=== PATIENT | female | born 2000 | race Caucasian/White ===

== ENCOUNTER 2023-04-22 12:35 | Inpatient (IN) ==
[2023-04-22 13:26] LABS: Appearance Urine Cloudy (Clear); Bacteria Urine Automated Negative (Negative); Basophils # (auto) 0.11 K/uL (0-0.2); Basophils % (auto) 0.5 %; Bilirubin Urine Negative (Negative); Blood Urine Negative (Negative); Color Urine Orange; Eosinophils # (auto) 0.11 K/uL (0-0.50); Eosinophils % (auto) 0.5 %; Epithelial Cell Urine Auto >30 /lpf (0-5); Glucose Urine UA Negative (Negative); Hematocrit (blood only) 41.9 % (37.0-47.0); Hemoglobin 13.6 g/dl (12.0-16.0); Immature Granulocytes # (auto) 0.13 K/uL (0.01-0.20); Immature Granulocytes % (auto) 0.6 %; Ketones Urine Trace (Negative); Leukocyte Esterase Urine Trace (Negative); Lymphocytes # (auto) 4.13 K/uL (1.2-3.4); Lymphocytes % (auto) 19.3 %; Mean Corpuscular Hemoglobin 29.3 pg (25.0-34.0); Mean Corpuscular Hgb Conc 32.5 g/dL (32.0-36.0); Mean Corpuscular Volume 90.3 fL (80.0-100.0); Mean Platelet Volume 10.1 fL (9.4-12.4); Monocytes # (auto) 2.62 K/uL (0.11-0.59); Monocytes % (auto) 12.2 %; Neutrophils # (auto) 14.34 K/uL (1.40-6.50); Neutrophils % (auto) 66.9 %; Nitrite Urine Positive (Negative); Platelet Count 575 K/uL (130-400); Protein Urine Trace (Negative); RBC Urine Automated 0-4 /hpf (0-4); RDW Coefficient of Variation 12.5 % (11.5-14.5); RDW Standard Deviation 41.2 fL (36.4-46.3); Red Blood Count 4.64 M/uL (4.20-5.40); Specific Gravity Urine 1.028 (1.000-1.030); Urobilinogen Urine Negative (Negative); White Blood Count 21.44 K/ul (4.8-10.8); pH Urine 5.5 (4.5-7.5)
[2023-04-22 13:30] LABS: Pregnancy Test, Serum Negative (Negative)
[2023-04-22 13:34] LABS: Albumin Level 3.9 gm/dl (3.4-5.0); Bilirubin,Total 0.6 mg/dl (0.2-1.0); Calcium 9.4 mg/dl (8.6-10.3); Est GFR (African American) 117.8 ml/min; Est GFR (Non-African American) 101.7 ml/min; Globulin 3.8 gm/dl (2.5-4.0); Potassium 4.2 mmol/L (3.5-5.1); Total Protein 7.7 gm/dl (6.0-8.3)
--- NOTE | 2023-04-22 16:00 | Emergency Department Note ---
History of Present Illness General Chief Complaint: Abdominal Pain Stated Complaint: ABDOMINAL PAIN Time Seen by Provider: 04/22/23 15:41 History of Present Illness Provider Complaint: abdominal pain Onset (ago): 1 week(s) Pain Consistency: intermittent Location: LLQ and RLQ Severity: moderate Maximum Pain Intensity: 7 Current Pain Intensity: 7 Quality: + cramping Relieved By: + nothing Exacerbated By: + nothing Context: no foreign travel, no possible food poisoning, no sick contacts, no recent antibiotic use, no recent surgery/procedure, no recent injury or no history of similar episodes Associated Symptoms: + nausea and + fever; no vomiting, no diarrhea, no chills, no constipation, no dysuria and no hematuria Patient states there is no chance she is . She states she is not concerned about any STDs. No abnormal vaginal discharge or bleeding. Home Medications Medication Instructions Recorded Confirmed Type azathioprine 50 mg tablet 50 mg PO DAILY 04/22/23 04/22/23 History infliximab 100 mg intravenous 0 mg IV .EVERY 6 WEEKS 04/22/23 04/22/23 History solution (Remicade) Allergies Allergy/AdvReac Type Severity Reaction Status Date / Time No Known Allergies Allergy Unverified 04/22/23 15:52 Past Med/Surg History Medical History Crohn's disease No pertinent family history Surgical History No pertinent past surgical history Social History Smoking Status: Never smoker Feels Safe at Home: Yes Physical Exam Vital Signs: Vital Signs - 24 hr 04/22/23 12:39 04/22/23 15:43 04/22/23 16:34 Temperature 36.9 C 38.1 C H Temperature Source Temporal Artery Sc an Oral Pulse Rate 92 H Pulse Rate [Apical ] 108 H 95 H Respiratory Rate 16 18 18 Respiratory Effort / Characteristics Respiratory Depth Blood Pressure 116/82 Blood Pressure [Ri ght Arm] 113/83 107/76 Blood Pressure Maame n 93 Blood Pressure Maame n [Right Arm] 93 86 Pulse Oximetry 98 99 98 Oxygen Delivery Me thod Room Air Room Air Room Air Sepsis Recent Feve r Within 48 Hours No Sepsis New/Unexpla ined Change in Men roderick Status No Sepsis Action Take n by Nursing No Action Required 04/22/23 17:09 Temperature Temperature Source Pulse Rate Pulse Rate [Apical ] 99 H Respiratory Rate 18 Respiratory Effort / Characteristics Non-Labored Respiratory Depth Normal Blood Pressure Blood Pressure [Ri ght Arm] Blood Pressure Maame n Blood Pressure Maame n [Right Arm] Pulse Oximetry 96 Oxygen Delivery Me thod Room Air Sepsis Recent Feve r Within 48 Hours Sepsis New/Unexpla ined Change in Men roderick Status Sepsis Action Take n by Nursing Physical Exam: Physical Exam HENT: Exam performed. -Head: Normocephalic and atraumatic. -Right Ear: External ear normal. No mastoid erythema -Left Ear: External ear normal. No mastoid erythema -Mouth/Throat: The oropharynx is clear and moist. No trismus in the jaw. No dental abscesses or uvula swelling. No oropharyngeal exudate or tonsillar abscesses. EYES: Conjunctivae and EOM are normal.Right eye exhibits no discharge. Left eye exhibits no discharge. No scleral icterus. NECK: Normal range of motion. Neck supple. No JVD present. No tracheal deviation and normal range of motion present. CV: Normal rate, regular rhythm, normal heart sounds and intact distal pulses. There is no peripheral edema. Palpable radial pulses bue. PULM/CHEST: Effort normal and breath sounds normal. No respiratory distress. No stridor. She has no wheezes. She has no rales. -Chest Wall: She exhibits no tenderness. ABD: The abdomen is soft. Bowel sounds are normal. She has no distension. No mass is present. There is tenderness to palpation in the right lower quadrant and left lower quadrant. There is no rebound, no guarding. MUSC/SKEL: Normal range of motion. There is no peripheral edema, tenderness or deformity. NEURO: Motor and sensation grossly intact. SKIN: Skin is warm and dry. She is not diaphoretic. PSYCH: She has a normal mood and affect. Behavior is normal. Judgment and thought content normal. Course Course 1541: The patient was evaluated in room C9. A complete history and physical exam was performed Administered Medications Lactated Ringer's (Lr) 1,000 mls @ 125 mls/hr IV .Q8H DORA Stop: 05/22/23 20:39 Last Admin: 04/22/23 21:00 Dose: 125 mls/hr Documented By: DREW Discontinued Medications Acetaminophen (Ofirmev) 1,000 mg in 100 mls @ 400 mls/hr IV NOW STA Stop: 04/22/23 17:04 Last Infusion: 04/22/23 17:24 Dose: 0 mls/hr Documented By: Admin: 04/22/23 17:07 Dose: 400 mls/hr Documented By: LEDA Lactated Ringer's (Lr) 1,000 mls @ 999 mls/hr IV .Q1H1M ONE Stop: 04/22/23 18:17 Last Admin: 04/22/23 17:44 Dose: 999 mls/hr Documented By: LEDA Ioversol (Optiray 320 100ml) 94 ml IV ONCE ONE Stop: 04/22/23 16:16 Last Admin: 04/22/23 16:07 Dose: 94 ml Documented By: MERON Prednisone (Prednisone 10 Mg Tablet) 25 mg PO NOW STA Stop: 04/22/23 20:41 Last Admin: 04/22/23 21:00 Dose: 25 mg Documented By: DREW Medical Decision Making Laboratory Data Attestation: I reviewed the patient's lab results. 04/22/23 12:57 04/22/23 12:57 Lab Results 04/22/23 04/22/23 04/22/23 Range/Units 12:57 12:57 12:57 WBC 21.44 H (4.8-10.8) K/ul RBC 4.64 (4.20-5.40) M/uL Hgb 13.6 (12.0-16.0) g/dl Hct 41.9 (37.0-47.0) % MCV 90.3 (80.0-100.0) fL MCH 29.3 (25.0-34.0) pg MCHC 32.5 (32.0-36.0) g/dL RDW Std Deviation 41.2 (36.4-46.3) fL RDW Coeff of Jerrell 12.5 (11.5-14.5) % Plt Count 575 H (130-400) K/uL MPV 10.1 (9.4-12.4) fL Immature Gran % (Auto) 0.6 % Neut % (Auto) 66.9 % Lymph % (Auto) 19.3 % Sevier % (Auto) 12.2 % Eos % (Auto) 0.5 % Baso % (Auto) 0.5 % Neut # (Auto) 14.34 H (1.40-6.50) K/uL Lymph # (Auto) 4.13 H (1.2-3.4) K/uL Sevier # (Auto) 2.62 H (0.11-0.59) K/uL Eos # (Auto) 0.11 (0-0.50) K/uL Baso # (Auto) 0.11 (0-0.2) K/uL Immature Gran # (Auto) 0.13 (0.01-0.20) K/uL ESR (0-20) mm/hr Sodium 136 (136-145) mmol/L Potassium 4.2 (3.5-5.1) mmol/L Chloride 99 (98-107) mmol/L Carbon Dioxide 30 (21-32) mmol/L Anion Gap 7 (3-11) BUN 13 (6-23) mg/dl Creatinine 0.81 (0.6-1.2) mg/dl Est Cr Clr Drug Dosing 108.0 ml/min Est GFR ( Amer) 117.8 ml/min Est GFR (Non-Af Amer) 101.7 ml/min BUN/Creatinine Ratio 16.0 (10-20) Glucose 101 H (70-99(Fasting)) mg/dl Lactate (0.4-2.0) mmol/L Calcium 9.4 (8.6-10.3) mg/dl Total Bilirubin 0.6 (0.2-1.0) mg/dl AST 20 (13-39) U/L ALT 15 (7-52) U/L Alkaline Phosphatase 79 (34-104) U/L C-Reactive Protein 9.10 H (0-0.5) mg/dl Total Protein 7.7 (6.0-8.3) gm/dl Albumin 3.9 (3.4-5.0) gm/dl Globulin 3.8 (2.5-4.0) gm/dl Albumin/Globulin Ratio 1.0 (0.9-2) Lipase 8 L (11-82) U/L Carcinoembryonic Ag (0-2.5) ng/ml Procalcitonin (0-0.5) ng/ml HCG, Qual Negative (Negative) Urine Color Urine Appearance (Clear) Urine pH (4.5-7.5) Ur Specific [place] (1.000-1.030) Urine Protein (Negative) Urine Glucose (UA) (Negative) Urine Ketones (Negative) Urine Blood (Negative) Urine Nitrite (Negative) Urine Bilirubin (Negative) Urine Urobilinogen (Negative) Ur Leukocyte Esterase (Negative) Urine WBC (Auto) (0-5) /hpf Urine RBC (Auto) (0-4) /hpf U Hyaline Cast (Auto) (0-5) /lpf U Epithel Cells (Auto) (0-5) /lpf Urine Bacteria (Auto) (Negative) 04/22/23 04/22/23 04/22/23 Range/Units 12:57 12:57 17:31 WBC (4.8-10.8) K/ul RBC (4.20-5.40) M/uL Hgb (12.0-16.0) g/dl Hct (37.0-47.0) % MCV (80.0-100.0) fL MCH (25.0-34.0) pg MCHC (32.0-36.0) g/dL RDW Std Deviation (36.4-46.3) fL RDW Coeff of Jerrell (11.5-14.5) % Plt Count (130-400) K/uL MPV (9.4-12.4) fL Immature Gran % (Auto) % Neut % (Auto) % Lymph % (Auto) % [place] % (Auto) % Eos % (Auto) % Baso % (Auto) % Neut # (Auto) (1.40-6.50) K/uL Lymph # (Auto) (1.2-3.4) K/uL [place] # (Auto) (0.11-0.59) K/uL Eos # (Auto) (0-0.50) K/uL Baso # (Auto) (0-0.2) K/uL Immature Gran # (Auto) (0.01-0.20) K/uL ESR 73 H (0-20) mm/hr Sodium (136-145) mmol/L Potassium (3.5-5.1) mmol/L Chloride (98-107) mmol/L Carbon Dioxide (21-32) mmol/L Anion Gap (3-11) BUN (6-23) mg/dl Creatinine (0.6-1.2) mg/dl Est Cr Clr Drug Dosing ml/min Est GFR ( Amer) ml/min Est GFR (Non-Af Amer) ml/min BUN/Creatinine Ratio (10-20) Glucose (70-99(Fasting)) mg/dl Lactate (0.4-2.0) mmol/L Calcium (8.6-10.3) mg/dl Total Bilirubin (0.2-1.0) mg/dl AST (13-39) U/L ALT (7-52) U/L Alkaline Phosphatase (34-104) U/L C-Reactive Protein (0-0.5) mg/dl Total Protein (6.0-8.3) gm/dl Albumin (3.4-5.0) gm/dl Globulin (2.5-4.0) gm/dl Albumin/Globulin Ratio (0.9-2) Lipase (11-82) U/L Carcinoembryonic Ag 0.4 (0-2.5) ng/ml Procalcitonin (0-0.5) ng/ml HCG, Qual (Negative) Urine Color Gove Urine Appearance Cloudy A (Clear) Urine pH 5.5 (4.5-7.5) Ur Specific [place] 1.028 (1.000-1.030) Urine Protein Trace H (Negative) Urine Glucose (UA) Negative (Negative) Urine Ketones Trace H (Negative) Urine Blood Negative (Negative) Urine Nitrite Positive A (Negative) Urine Bilirubin Negative (Negative) Urine Urobilinogen Negative (Negative) Ur Leukocyte Esterase Trace H (Negative) Urine WBC (Auto) 1-5 (0-5) /hpf Urine RBC (Auto) 0-4 (0-4) /hpf U Hyaline Cast (Auto) 1-5 (0-5) /lpf U Epithel Cells (Auto) >30 H (0-5) /lpf Urine Bacteria (Auto) Negative (Negative) 04/22/23 04/22/23 Range/Units 17:31 17:31 WBC (4.8-10.8) K/ul RBC (4.20-5.40) M/uL Hgb (12.0-16.0) g/dl Hct (37.0-47.0) % MCV (80.0-100.0) fL MCH (25.0-34.0) pg MCHC (32.0-36.0) g/dL RDW Std Deviation (36.4-46.3) fL RDW Coeff of Jerrell (11.5-14.5) % Plt Count (130-400) K/uL MPV (9.4-12.4) fL Immature Gran % (Auto) % Neut % (Auto) % Lymph % (Auto) % [place]vier % (Auto) % Eos % (Auto) % Baso % (Auto) % Neut # (Auto) (1.40-6.50) K/uL Lymph # (Auto) (1.2-3.4) K/uL [place]vier # (Auto) (0.11-0.59) K/uL Eos # (Auto) (0-0.50) K/uL Baso # (Auto) (0-0.2) K/uL Immature Gran # (Auto) (0.01-0.20) K/uL ESR (0-20) mm/hr Sodium (136-145) mmol/L Potassium (3.5-5.1) mmol/L Chloride (98-107) mmol/L Carbon Dioxide (21-32) mmol/L Anion Gap (3-11) BUN (6-23) mg/dl Creatinine (0.6-1.2) mg/dl Est Cr Clr Drug Dosing ml/min Est GFR ( Amer) ml/min Est GFR (Non-Af Amer) ml/min BUN/Creatinine Ratio (10-20) Glucose (70-99(Fasting)) mg/dl Lactate 1.2 (0.4-2.0) mmol/L Calcium (8.6-10.3) mg/dl Total Bilirubin (0.2-1.0) mg/dl AST (13-39) U/L ALT (7-52) U/L Alkaline Phosphatase (34-104) U/L C-Reactive Protein (0-0.5) mg/dl Total Protein (6.0-8.3) gm/dl Albumin (3.4-5.0) gm/dl Globulin (2.5-4.0) gm/dl Albumin/Globulin Ratio (0.9-2) Lipase (11-82) U/L Carcinoembryonic Ag (0-2.5) ng/ml Procalcitonin 0.38 (0-0.5) ng/ml HCG, Qual (Negative) Urine Color Urine Appearance (Clear) Urine pH (4.5-7.5) Ur Specific [place] (1.000-1.030) Urine Protein (Negative) Urine Glucose (UA) (Negative) Urine Ketones (Negative) Urine Blood (Negative) Urine Nitrite (Negative) Urine Bilirubin (Negative) Urine Urobilinogen (Negative) Ur Leukocyte Esterase (Negative) Urine WBC (Auto) (0-5) /hpf Urine RBC (Auto) (0-4) /hpf U Hyaline Cast (Auto) (0-5) /lpf U Epithel Cells (Auto) (0-5) /lpf Urine Bacteria (Auto) (Negative) Imaging Data Radiologist's Impression: Abdomen/Pelvis CT 04/22/23 15:51 CT OF THE ABDOMEN AND PELVIS WITH CONTRAST CLINICAL HISTORY: Lower abdominal pain. COMPARISON STUDY: None. TECHNIQUE: Following IV administration of 94 mL of Optiray, axial images of the abdomen and pelvis were obtained from the lung bases to the proximal femurs. Images were reviewed in the axial, sagittal, and coronal planes. IV contrast was administered without complication. Automated exposure control was utilized for the study. A dose lowering technique was utilized adhering to the principles of ALARA. CT DOSE: 781.11 mGy.cm FINDINGS: Lung bases are unremarkable. No pneumatosis, free air or portal venous gas is present. There are numerous hepatic hypodense masses. Index segment 6 lesion on axial image 125 of 381 measures 4.4 x 2.7 cm. A segment 8 lesion on image 47 measures 4 x 3.6 cm. There is no biliary ductal dilatation. Spleen, adrenal glands, kidneys and pancreas are unremarkable. Note is made of a large lobulated heterogeneously enhancing mass arising from the proximal transverse colon. This measures approximately 9.4 x 5.2 cm. This does not result in a bowel obstruction. There is an adjacent 5 x 3.8 cm mass extending into the mesentery. This could reflect extension of the primary tumor or a pathologic lymph node. This results in severe narrowing of the superior mesenteric vein. Mild adjacent stranding is present. Additional pathologic lymph nodes are noted. Index node measures 1.4 x 1 cm and is located along the inferior right hepatic lobe. There are possible smaller additional nodes versus peritoneal implants. The appendix is normal. Submucosal fat deposition within the colon and rectum is noted. No suspicious osseous lesions are noted. IMPRESSION: 1. Large mass arising from the proximal transverse colon, measuring approximately 9.4 x 5.2 cm, with exophytic component extending into the mesentery. 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 GI consultation is recommended. 2. 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 3. Abdominal pathologic lymphadenopathy, as described above. Possible small peritoneal implants. 4. No resultant bowel obstruction. 5. Submucosal fat deposition within the colon and rectum. This can be seen in the setting of inflammatory bowel disease. ACT 112: Positive. There are findings on this exam that require communication between the performing entity and the patient following Patient Test Result Information Act ([place] Act 112) guidelines. Electronically signed by: Jordan Valdivia M.D. 04/22/2023 4:29 PM [facility] Narrative Cardiac monitoring: An order was placed for continuous cardiac monitoring. The monitor shows a rate of 100 with sinus rhythm interpreted by md Labs show leukocytosis of 21.44. EMR is reviewed and the patient has chronically elevated white blood cell count in Mar 25 2023 her white blood cell count was 18.49. Her platelets are also chronically elevated. Labs are otherwise unremarkable. Imaging showed that there is a large mass arising from the proximal transverse colon measuring 9.4 x 5.2 cm with exophytic component extending into the mesentery that is consistent with a colonic neoplasm and may reflect an adenocarcinoma. There were numerous hypodense hepatic lesions consistent with metastasis from the colonic primary. I did discuss his case with general surgery Dr. Rivero who stated given that there is no bowel obstruction there is no acute surgical intervention to be performed. Discussed with GI Dr. Noyola on-call for [facility] as the patient usually sees Jeni Arredondo [facility] he states that a member from their team can evaluate the patient in the morning. Discussed with oncology Dr. Liu who also states she will evaluate the patient in the morning. Patient will be admitted to the [facility] hospitalist team Dr. Mcdonald notified. Impression & Plan Colonic mass, Crohn's disease Discharge Plan Visit Data Chief Complaint: Abdominal Pain Stated Complaint: ABDOMINAL PAIN ED Provider: Vipin Bahena Discharge Problem: Colonic mass, Crohn's disease Patient Disposition: Admitted As Inpatient Discharge Instructions Interventions: ED Discharge Assessment Last Done: 04/22/23 19:34
[2023-04-22] MEDS ORDERED: OPTIRAY 320 100ml IV ONE (16:15)
--- NOTE | 2023-04-22 16:31 | CT Scan Report ---
CT OF THE ABDOMEN AND PELVIS WITH CONTRAST CLINICAL HISTORY: Lower abdominal pain. COMPARISON STUDY: None. TECHNIQUE: Following IV administration of 94 mL of Optiray, axial images of the abdomen and pelvis we re obtained from the lung bases to the proximal femurs. Images were reviewed in the axial, sagittal, and coronal planes. IV contrast was administered without complication. Automated exposure control wa s utilized for the study. A dose lowering technique was utilized adhering to the principles of ALARA . CT DOSE: 781.11 mGy.cm FINDINGS: Lung bases are unremarkable. No pneumatosis, free air or portal venous gas is present. Ther e are numerous hepatic hypodense masses. Index segment 6 lesion on axial image 125 of 381 measures 4. 4 x 2.7 cm. A segment 8 lesion on image 47 measures 4 x 3.6 cm. There is no biliary ductal dilatation . Spleen, adrenal glands, kidneys and pancreas are unremarkable. Note is made of a large lobulated he terogeneously enhancing mass arising from the proximal transverse colon. This measures approximately 9.4 x 5.2 cm. This does not result in a bowel obstruction. There is an adjacent 5 x 3.8 cm mass exten ding into the mesentery. This could reflect extension of the primary tumor or a pathologic lymph node . This results in severe narrowing of the superior mesenteric vein. Mild adjacent stranding is presen t. Additional pathologic lymph nodes are noted. Index node measures 1.4 x 1 cm and is located along t he inferior right hepatic lobe. There are possible smaller additional nodes versus peritoneal implant s. The appendix is normal. Submucosal fat deposition within the colon and rectum is noted. No suspici ous osseous lesions are noted. IMPRESSION: 1. Large mass arising from the proximal transverse colon, measuring approximately 9.4 x 5.2 cm, with exophytic component extending into the mesentery. 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 GI consultation is recommended. 2. 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 3. Abdominal pathologic lymphadenopathy, as described above. Possible small peritoneal implants. 4. No resultant bowel obstruction. 5. Submucosal fat deposition within the colon and rectum. This can be seen in the setting of inflamma tory bowel disease. ACT 112: Positive. There are findings on this exam that require communication between the performing entity and the patient following Patient Test Result Information Act ([place] Act 112) guidelines. Electronically signed by: Jordan Valdivia M.D. 04/22/2023 4:29 PM
[2023-04-22] MEDS ORDERED: ACETAMINOPHEN 1,000 MG/100 ML VIAL IV STA (16:50)
[2023-04-22] MEDS ORDERED: LACTATED RINGER'S 1,000 ML IV ONE (17:17)
[2023-04-22 17:57] LABS: C Reactive Protein 9.1 mg/dl (0-0.5)
--- NOTE | 2023-04-22 18:31 | History & Physical Report ---
Date of Service April 22, 2023 Assessment & Plan (1) Colonic mass: Plan: with metastatic disease to liver CEA Clear liquids now, NPO at midnight Consult gastroenterology (2) Crohn's disease: Plan: Continue prednisone 25mg PO daily and azathioprine 50mg PO daily (3) SIRS (systemic inflammatory response syndrome): Plan: Patient not septic appearing with recurrent ongoing fevers. Suspect due to underlying mass. However, will take blood cultures, lactate and procalcitonin but will defer antibiotics on admission. WBC possibly just raised due to steroid use +/- underlying cancer and does not appear to be acute. Plan VTE Prophylaxis - Lovenox 40mg SQ daily Diet - clear liquids, NPO at midnight Disposition - admit to med/surg Admission and Anticipated Discharge Date Admission Date: April 22, 2023 History of Present Illness Chief Complaint: Abdominal pain Primary Care Provider: [facility] Brigette Loza is a 22 year old female who presents to the ER with abdominal cramping and fever. She reports initial pelvic cramping lasting for minutes at a time associated with her period starting April 13. However the abdominal cramping continued after her period ended and she followed up with her kiln car unloader today who found no concern on her pelvic exam and advised the patient to come to the ER for further workup. Pain severity 7/10 at worst. Not upper abdominal without radiation. No exacerbating or alleviating factors. Associated fevers every other day for the last week. She denies any nausea, vomiting. No change in bowels but she has chronic diarrhea due to Crohn's for which she is currently taking a prednisone taper (currently on 25mg PO daily and reducing by 5mg/day every week). No melena or bright red blood on stool. In the ER CT was concerning for colon mass with metastatic disease to her liver. ER physician discussed with oncology, surgery and gastroenterology and advised admission to medicine for ongoing management. Allergies Allergy/AdvReac Type Severity Reaction Status Date / Time No Known Allergies Allergy Unverified 04/22/23 15:52 Home Medications Medication Instructions Recorded Confirmed Type azathioprine 50 mg tablet 50 mg PO DAILY 04/22/23 04/22/23 History infliximab 100 mg intravenous 0 mg IV .EVERY 6 WEEKS 04/22/23 04/22/23 History solution (Remicade) Past Med/Surg History Medical History Crohn's disease No pertinent family history Surgical History No pertinent past surgical history Social History Smoking Status: Never smoker Feels Safe at Home: Yes Review of Systems Review of Systems: All systems reviewed & are unremarkable except as noted in HPI & below Physical Exam Constitutional: WD/WN, vitals as above Eyes: + anicteric sclerae; normal pupil size Respiratory: normal respiratory effort, lungs clear to auscultation Cardiovascular: RRR, no murmur, no edema Gastrointestinal (Abdomen): Inspection/Auscultation: abdomen normal to inspection; abdomen not distended Percussion/Palpation: + abdomen tender (epigastric) and abdomen soft; no guarding and abdomen not rigid Musculoskeletal: no cyanosis or clubbing, extremities motor strength 5/5 Skin: no rashes, warm and dry Neurologic: moves all extremities and awake; not confused Psychiatric: A+Ox3, euthymic affect Results & Data Results & Data Vital Signs (Past 12 Hours) Vital Signs Temp Pulse Pulse Resp BP BP Pulse Ox 04/22/23 17:46 101 H 18 113/74 96 04/22/23 17:09 99 H 18 96 04/22/23 16:34 38.1 C H 95 H 18 107/76 98 04/22/23 15:43 108 H 18 113/83 99 04/22/23 12:39 36.9 C 92 H 16 116/82 98 O2 Del Method 04/22/23 17:46 Room Air 04/22/23 17:09 Room Air 04/22/23 16:34 Room Air 04/22/23 15:43 Room Air 04/22/23 12:39 Room Air Laboratory Results Abnormal lab results 04/22/23 04/22/23 04/22/23 Range/Units 12:57 12:57 12:57 WBC 21.44 H (4.8-10.8) K/ul Plt Count 575 H (130-400) K/uL Neut # (Auto) 14.34 H (1.40-6.50) K/uL Lymph # (Auto) 4.13 H (1.2-3.4) K/uL Bill[place] # (Auto) 2.62 H (0.11-0.59) K/uL ESR (0-20) mm/hr Glucose 101 H (70-99(Fasting)) mg/dl C-Reactive Protein 9.10 H (0-0.5) mg/dl Lipase 8 L (11-82) U/L Urine Appearance Cloudy A (Clear) Urine Protein Trace H (Negative) Urine Ketones Trace H (Negative) Urine Nitrite Positive A (Negative) Ur Leukocyte Esterase Trace H (Negative) U Epithel Cells (Auto) >30 H (0-5) /lpf 04/22/23 Range/Units 12:57 WBC (4.8-10.8) K/ul Plt Count (130-400) K/uL Neut # (Auto) (1.40-6.50) K/uL Lymph # (Auto) (1.2-3.4) K/uL Bill[place] # (Auto) (0.11-0.59) K/uL ESR 73 H (0-20) mm/hr Glucose (70-99(Fasting)) mg/dl C-Reactive Protein (0-0.5) mg/dl Lipase (11-82) U/L Urine Appearance (Clear) Urine Protein (Negative) Urine Ketones (Negative) Urine Nitrite (Negative) Ur Leukocyte Esterase (Negative) U Epithel Cells (Auto) (0-5) /lpf Diagnostic Findings CT OF THE ABDOMEN AND PELVIS WITH CONTRAST CLINICAL HISTORY: Lower abdominal pain. COMPARISON STUDY: None. TECHNIQUE: Following IV administration of 94 mL of Optiray, axial images of the abdomen and pelvis were obtained from the lung bases to the proximal femurs. Images were reviewed in the axial, sagittal, and coronal planes. IV contrast was administered without complication. Automated exposure control was utilized for the study. A dose lowering technique was utilized adhering to the principles of ALARA. CT DOSE: 781.11 mGy.cm FINDINGS: Lung bases are unremarkable. No pneumatosis, free air or portal venous gas is present. There are numerous hepatic hypodense masses. Index segment 6 lesion on axial image 125 of 381 measures 4.4 x 2.7 cm. A segment 8 lesion on image 47 measures 4 x 3.6 cm. There is no biliary ductal dilatation. Spleen, adrenal glands, kidneys and pancreas are unremarkable. Note is made of a large lobulated heterogeneously enhancing mass arising from the proximal transverse colon. This measures approximately 9.4 x 5.2 cm. This does not result in a bowel obstruction. There is an adjacent 5 x 3.8 cm mass extending into the mesentery. This could reflect extension of the primary tumor or a pathologic lymph node. This results in severe narrowing of the superior mesenteric vein. Mild adjacent stranding is present. Additional pathologic lymph nodes are noted. Index node measures 1.4 x 1 cm and is located along the inferior right hepatic lobe. There are possible smaller additional nodes versus peritoneal implants. The appendix is normal. Submucosal fat deposition within the colon and rectum is noted. No suspicious osseous lesions are noted. IMPRESSION: 1. Large mass arising from the proximal transverse colon, measuring approximately 9.4 x 5.2 cm, with exophytic component extending into the mesenter y. 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 GI consultation is recommended. 2. 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 3. Abdominal pathologic lymphadenopathy, as described above. Possible small peritoneal implants. 4. No resultant bowel obstruction. 5. Submucosal fat deposition within the colon and rectum. This can be seen in the setting of inflammatory bowel disease. Medications Administered ER Medications Given: Acetaminophen 1000mg IV Code Status & VTE Plan Code Status Full VTE Prophylaxis Plan VTE Prophylaxis will be ordered: Yes PG Care Time/CCT Total # of Minutes Spent Total Time Spent with Patient: Total time spent is greater than 50% in coordination of care (as documented) at patient's floor/unit and/or counseling patient: Coding Level of Care Code 12450 INT INP/OBS CARE 2/55MIN Diagnoses Colonic mass K63.89 Crohn's disease K50.90 SIRS (systemic inflammatory response syndrome) R65.10
[2023-04-22] MEDS ORDERED: predniSONE 10 MG TABLET PO STA (20:40)
[2023-04-22] MEDS: LACTATED RINGER'S 1,000 ML IV SCH (21:00)
[2023-04-22] MEDS ORDERED: MoRPHine SULFATE 2 MG/ML CARP IV PRN (22:27)
[2023-04-22] MEDS ORDERED: ACETAMINOPHEN 1,000 MG/100 ML VIAL IV PRN (22:27)
[2023-04-22] MEDS ORDERED: ONDANSETRON INJ 2 MG/ML 2 ML VIAL IV PRN (22:27)
[2023-04-22] MEDS ORDERED: ENOXAPARIN INJ 40 MG/0.4 ML SYR SQ SCH (22:35)
[2023-04-22] MEDS ORDERED: Nursing to Pharmacy Communication SCH (23:15)
[2023-04-23] MEDS: LACTATED RINGER'S 1,000 ML IV SCH ×3 (04:07→20:10)
[2023-04-23 07:44] LABS: Basophils # (auto) 0.09 K/uL (0-0.2); Basophils % (auto) 0.4 %; Eosinophils # (auto) 0.03 K/uL (0-0.50); Eosinophils % (auto) 0.1 %; Hematocrit (blood only) 39.6 % (37.0-47.0); Hemoglobin 13.1 g/dl (12.0-16.0); Immature Granulocytes % (auto) 0.5 %; Lymphocytes # (auto) 2.97 K/uL (1.2-3.4); Lymphocytes % (auto) 14.4 %; Mean Corpuscular Hemoglobin 29.1 pg (25.0-34.0); Mean Corpuscular Hgb Conc 33.1 g/dL (32.0-36.0); Mean Platelet Volume 10.2 fL (9.4-12.4); Monocytes # (auto) 2.27 K/uL (0.11-0.59); Neutrophils % (auto) 73.6 %; Platelet Count 587 K/uL (130-400); RDW Coefficient of Variation 12.5 % (11.5-14.5); RDW Standard Deviation 40.2 fL (36.4-46.3); White Blood Count 20.66 K/ul (4.8-10.8)
--- NOTE | 2023-04-23 07:53 | Hospitalist Progress Note ---
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 Colonic mass: -with metastatic disease to liver -CEA 0.4 -LDH elevated -CA 125 pending -Consult Gastroenterology - Start her on clear liquids today to ensure that she can tolerate a colonoscopy prep - Plan for colonoscopy prep tomorrow and n.p.o. after midnight - Colonoscopy with Dr. Noyola on Tuesday -Consult Oncology - Although imaging is highly suggestive of colon cancer, her clinical symptoms and laboratory findings are more suggestive of a possible lymphoproliferative process -Recommend core biopsy of colon mass to establish primary - Recommend obtaining CT chest for full staging. Also obtain peripheral smea r review as well as flow cytometry on peripheral blood in the setting of leukocytosis Crohn's disease: -Continue prednisone 25mg PO daily and azathioprine 50mg PO daily SIRS (systemic inflammatory response syndrome) -- resolved -Patient not septic appearing on admission with recurrent ongoing fevers -Suspect due to underlying mass -Blood cultures drawn -Procal and lactate negative -- abx deferred -WBC possibly just raised due to steroid use +/- underlying cancer and does not appear to be acute -Vitals now stabilized VTE Prophylaxis - Lovenox 40mg SQ daily Diet - Clear liquid Disposition - Med/surg, pending results from colonoscopy and imaging for further DC planning CODE: FULL (2) Crohn's disease: (3) SIRS (systemic inflammatory response syndrome): Admission and Anticipated Discharge Date Admission Date: April 22, 2023 Supervising Physician Co-Signing Physician Notes Attending attestation Pt seen and examined in concert with Dr. Perea. In agreement with the documented findings as noted in the resident documentation with any exceptions or additions as noted here. Gradually improving diffuse abdominal pain without bowel complaint or nausea at present. Apparent anxiety regarding pending evaluation. On examination, S1/S2 nl RRR no MCG. CTAB. Abd diffusely mildly TTP without guarding, ND BS+ve Abnormal abdominal CT scan with concern for mass w/ metastatic disease to liver - GI and oncology consult - pending smear and send out testing for markers and initiate prep for colonoscopy on Tuesday by GI recommendations Crohn's disease - continue prednisone and azathioprine, monitor for changes Else see resident documentation as noted. Subjective Seen at bedside in AM. No acute complaints at this time with abd pain under control. No further fevers since 04/22. No n/v, CP, palp, SOB, COOLEY, dizziness. Review of Systems Review of Systems: per subjective Physical Exam Constitutional: WD/WN, vitals as above Eyes: + anicteric sclerae; normal pupil size Respiratory: normal respiratory effort, lungs clear to auscultation Cardiovascular: RRR, no murmur, no edema Gastrointestinal (Abdomen): Inspection/Auscultation: abdomen normal to inspection; abdomen not distended Percussion/Palpation: + abdomen tender (epigastric) and abdomen soft; no guarding and abdomen not rigid Musculoskeletal: no cyanosis or clubbing, extremities motor strength 5/5 Skin: no rashes, warm and dry Neurologic: moves all extremities and awake; not confused Psychiatric: A+Ox3, euthymic affect Results & Data Results & Data Vital Signs (Past 12 Hours) Vital Signs Temp Pulse Pulse Pulse Resp BP BP 04/23/23 07:38 37.1 C 86 16 116/80 04/23/23 04:00 37.5 C 83 20 117/79 04/22/23 22:41 75 04/22/23 20:48 99 H 04/23/23 00:00 37.1 C 90 20 122/82 04/22/23 22:50 04/22/23 22:50 36.8 C 94 H 18 112/85 04/22/23 20:40 36.8 C 94 H 18 112/85 04/22/23 20:40 Pulse Ox Pulse Ox O2 Del Method O2 Del Method 04/23/23 07:38 98 Room Air 04/23/23 04:00 98 Room Air 04/22/23 22:41 04/22/23 20:48 04/23/23 00:00 97 Room Air 04/22/23 22:50 Room Air 04/22/23 22:50 96 Room Air 04/22/23 20:40 96 Room Air 04/22/23 20:40 96 Room Air Resident Activity Tracking Resident Involvement: Resident Care Provided Care Provided: Adult Hospital Medicine (2) Crohn's disease Digestive disease complication type: unspecified complication Gastrointestinal tract location: unspecified location Qualified Code(s): K50.919 - Crohn's disease, unspecified, with unspecified complications
[2023-04-23 07:56] LABS: Albumin Globulin Ratio 0.9 (0.9-2); Albumin Level 3.4 gm/dl (3.4-5.0); BUN Creatinine Ratio 10.1 (10-20); Bilirubin,Total 0.5 mg/dl (0.2-1.0); Calcium 9.6 mg/dl (8.6-10.3); Creatinine Clr Calc Pharmacy 126.8 ml/min; Est GFR (African American) 141.2 ml/min; Est GFR (Non-African American) 121.8 ml/min; Globulin 3.7 gm/dl (2.5-4.0); Magnesium 1.8 mg/dl (1.7-2.4); Potassium 4.7 mmol/L (3.5-5.1); Total Protein 7.1 gm/dl (6.0-8.3)
[2023-04-23] MEDS ORDERED: ENOXAPARIN INJ 40 MG/0.4 ML SYR SQ SCH ×2 (08:00→21:00)
--- NOTE | 2023-04-23 08:11 | Oncology Consultation ---
Date of Consultation April 23, 2023 Assessment & Plan (1) Colonic mass: (2) Lymphadenopathy: Plan Very pleasant 22-year-old female with history of Crohn's disease on chronic immunosuppression who presented with GI complaints. Abdominal imaging suggestive of possible colon cancer. CEA normal at 0.4 and she complains of low-grade fever and night sweats. Labs show elevated LDH of 696. She also has leukocytosis possibly due to chronic steroid use -Although imaging is highly suggestive of colon cancer, her clinical symptoms and laboratory findings are more suggestive of a possible lymphoproliferative process especially in the setting of chronic immunosuppression with infliximab. Would be surprising that she would have metastatic colon cancer after having a fairly normal colonoscopy about 4 months ago. Recommend core biopsy of colon mass to establish primary. If she is found to have colon cancer, unfortunately this would be stage IV which although would be aggressively treated given her young will be considered incurable. On the other hand, if she is found to have lymphoma prognosis would likely be a lot better and likely curable. -Recommend obtaining CT chest for full staging. Also obtain peripheral smear review as well as flow cytometry on peripheral blood in the setting of leukocytosis. Discussed above results with the patient and her parents by her bedside. Thank you for this consult. 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 Patient indicates that pain was initially noticed earlier this month which she attributed to menstrual period cramps. Pain however persisted for which she presented to her log driver who performed ultrasound and NBA PLAYER exam which was unremarkable. Her log driver subsequently recommended she present to the ER. CT abdomen and pelvis on 04/22/2023 revealed large mass arising from the proximal transverse colon measuring approximately 9.4 x 5.2 cm with exophytic component extending into the mesentery consistent with colonic neoplasm, numerous hypodense hepatic lesions consistent with metastasis from colonic primary, abdominal pathologic lymphadenopathy with possible small peritoneal implants. She indicates that her most recent colonoscopy performed at [facility] in December, revealed some abnormal cells thought to be due to Crohn's. Patient recently transferred her PhD program to [employer] and she was supposed to follow-up with gastroenterology at [facility]. She complains of fever, night sweats which started about a week ago. She states that her maternal grandfather had prostate cancer but denies any other family history of malignancy. She is of [place]ales[place] descent. Allergies Allergy/AdvReac Type Severity Reaction Status Date / Time No Known Allergies Allergy Unverified 04/22/23 15:52 Home Medications Medication Instructions Recorded Confirmed Type azathioprine 50 mg tablet 50 mg PO DAILY 04/22/23 04/22/23 History infliximab 100 mg intravenous 0 mg IV .EVERY 6 WEEKS 04/22/23 04/22/23 History solution (Remicade) Patient History Medical History Crohn's disease No pertinent family history Surgical History No pertinent past surgical history Social History Smoking Status: Never smoker Hx Alcohol Use: No Hx Substance Use: No Preferred Language: Spanish Communication Ability: Effective Chainstitch Felled Seam Operator Required: No Beliefs That Will Affect Care: None Current Living Situation: Alone Feels Safe at Home: Yes Safety Concerns: Feels Safe At This Time Assistive Devices: Glasses Review of Systems Review of Systems: All systems reviewed & are unremarkable except as noted in Subjective Physical Exam Constitutional: WD/WN, vitals as above Eyes: PERRL, conjunctivae normal, anicteric sclerae Respiratory: normal respiratory effort, lungs clear to auscultation Gastrointestinal (Abdomen): normal bowel sounds, soft, nontender, no hepatosplenomegaly Results & Data Vital Signs (Past 12 Hours) Vital Signs Temp Pulse Pulse Pulse Resp BP BP 04/23/23 07:38 37.1 C 86 16 116/80 04/23/23 04:00 37.5 C 83 20 117/79 04/22/23 22:41 75 04/22/23 20:48 99 H 04/23/23 00:00 37.1 C 90 20 122/82 04/22/23 22:50 04/22/23 22:50 36.8 C 94 H 18 112/85 04/22/23 20:40 36.8 C 94 H 18 112/85 04/22/23 20:40 Pulse Ox Pulse Ox O2 Del Method O2 Del Method 04/23/23 07:38 98 Room Air 04/23/23 04:00 98 Room Air 04/22/23 22:41 04/22/23 20:48 04/23/23 00:00 97 Room Air 04/22/23 22:50 Room Air 04/22/23 22:50 96 Room Air 04/22/23 20:40 96 Room Air 04/22/23 20:40 96 Room Air
[2023-04-23] MEDS: azaTHIOprine 50 MG TAB PO SCH (08:36)
[2023-04-23] MEDS ORDERED: predniSONE 5 MG TAB PO SCH (09:00)
[2023-04-23] MEDS: predniSONE 10 MG TABLET PO SCH (09:30)
--- NOTE | 2023-04-23 09:33 | Gastrointestinal Consultation ---
Date of Consultation April 23, 2023 Assessment & Plan (1) Colonic mass: Usual for a recent colonoscopy and now with development concerning lesion. She does not have any symptoms either historically and/or exam that she is obstructed. I will start her on clear liquids today to ensure that she can tolerate a colonoscopy prep, plan for colonoscopy prep tomorrow and n.p.o. after midnight with colonoscopy with Dr. Noyola on Tuesday. Okay to continue her steroids as ordered, would evaluate and exclude possible infectious etiologies that are contributory such as the UTI given her fever. Abdominal lymphoma could also be in the differential with these B cell type symptoms, however imaging is not entirely consistent with that. Please call with questions (2) Crohn's disease: History of Present Illness Reason for Consultation: Abnormal CT scan Attending Physician: Eb Fierro MD History of Present Illness This is a 22-year-old female who in 2019 was diagnosed with Crohn's disease and is taking care of by [facility], who presented with a less than 1 week history of chronic abdominal pain that is paralyzed and colicky in nature. She has a history of Crohn's disease although I do not have those records available to me he has had a colonoscopy at least in September of last year possibly in December of this year with evidence of active disease but no masses that were noted at least from report. She has had recent adjustments of her medications including an increase of her Remicade from 5 mg to 10 mg as well as the interval being shortened to every 6 weeks. She denies any chronic nausea vomiting and/or abdominal pain at current time, she has not had any unintentional weight loss she has been on prednisone for quite some time and has had intermittent fevers but otherwise on remarkable. On her imaging it does show a concerning feature of a greater than 9 cm mass in the transverse colon with multiple liver lesions concerning for primary as well as metastatic disease. Counts are reviewed and shows a CEA that is normal as well as CA 19-9. She is without complaint today. Allergies Allergy/AdvReac Type Severity Reaction Status Date / Time No Known Allergies Allergy Unverified 04/22/23 15:52 Home Medications Medication Instructions Recorded Confirmed Type azathioprine 50 mg tablet 50 mg PO DAILY 04/22/23 04/22/23 History infliximab 100 mg intravenous 0 mg IV .EVERY 6 WEEKS 06/16/23 06/16/23 History solution (Remicade) Patient History Medical History Crohn's disease No pertinent family history Surgical History No pertinent past surgical history Social History Smoking Status: Never smoker Hx Alcohol Use: No Hx Substance Use: No Preferred Language: Upper Sorbian Communication Ability: Effective Design Engineering Manager Required: No Beliefs That Will Affect Care: None Current Living Situation: Alone Feels Safe at Home: Yes Safety Concerns: Feels Safe At This Time Assistive Devices: Glasses Physical Exam Constitutional: WD/WN, vitals as above Cardiovascular: RRR, no murmur, no edema Gastrointestinal (Abdomen): normal bowel sounds, soft, nontender, no hepatosplenomegaly Results & Data Vital Signs (Past 12 Hours) Vital Signs Temp Pulse Pulse Pulse Resp BP BP 04/23/23 07:38 37.1 C 86 16 116/80 04/23/23 04:00 37.5 C 83 20 117/79 04/22/23 22:41 75 04/23/23 00:00 37.1 C 90 20 122/82 04/22/23 22:50 04/22/23 22:50 36.8 C 94 H 18 112/85 Pulse Ox O2 Del Method 04/23/23 07:38 98 Room Air 04/23/23 04:00 98 Room Air 04/22/23 22:41 04/23/23 00:00 97 Room Air 04/22/23 22:50 Room Air 04/22/23 22:50 96 Room Air (2) Crohn's disease Digestive disease complication type: unspecified complication Gastrointestinal tract location: unspecified location Qualified Code(s): K50.919 - Crohn's disease, unspecified, with unspecified complications
--- NOTE | 2023-04-23 11:39 | Surgery Consultation ---
Date of Consultation April 23, 2023 Assessment & Plan (1) Colonic mass: agree with colonscopy await results agree with treatment no surgical issues currently Present on Admission?: Yes History of Present Illness Attending Physician: Eb Fierro MD History of Present Illness This is a 22YO female who in 2019 was diagnosed with Crohn's disease who presents with 1 week history of chronic abdominal pain. She had a colonoscopy in December of this year with evidence of active disease but no masses that were noted at least from report. She has had recent adjustments of her medications including an increase of her Remicade from 5 mg to 10 mg as well as the interval being shortened to every 6 weeks. She denies any nausea, vomiting or fevers. On her imaging it does show a concerning feature of a greater than 9 cm mass in the transverse colon with multiple liver lesions concerning for primary as well as metastatic disease. Counts are reviewed and shows a CEA that is normal as well as CA 19-9. Allergies Allergy/AdvReac Type Severity Reaction Status Date / Time No Known Allergies Allergy Unverified 04/22/23 15:52 Home Medications Medication Instructions Recorded Confirmed Type azathioprine 50 mg tablet 50 mg PO DAILY 04/22/23 04/22/23 History infliximab 100 mg intravenous 0 mg IV .EVERY 6 WEEKS 04/22/23 04/22/23 History solution (Remicade) Patient History Medical History Crohn's disease No pertinent family history Surgical History No pertinent past surgical history Social History Smoking Status: Never smoker Hx Alcohol Use: No Hx Substance Use: No Preferred Language: Citizen Of [place] Communication Ability: Effective Senior Product Designer Required: No Beliefs That Will Affect Care: None Current Living Situation: Alone Feels Safe at Home: Yes Safety Concerns: Feels Safe At This Time Assistive Devices: Glasses Review of Systems Constitutional: no fever and no chills Eyes: no problem reported Ear, Nose, Mouth, Throat: no problem reported Respiratory: no cough and no dyspnea Cardiovascular: no chest pain Gastrointestinal: + change in bowel habits; no abdominal pain, no nausea and no vomiting Genitourinary: no dysuria Musculoskeletal: no back pain Neurologic: no localized weakness and no generalized weakness Psychiatric: no behavioral changes Endocrine: no fatigue Physical Exam Constitutional: WD/WN, vitals as above Eyes: PERRL, conjunctivae normal, anicteric sclerae ENMT: external ear and nose normal, oropharynx normal Neck: trachea midline Respiratory: normal respiratory effort, lungs clear to auscultation Cardiovascular: RRR, no murmur, no edema Gastrointestinal (Abdomen): Inspection/Auscultation: abdomen normal to inspection, + abdomen distended and normal bowel sounds Percussion/Palpation: + abdomen tender and abdomen soft; no guarding and abdomen not rigid Musculoskeletal: Head/Neck/Chest: normocephalic and head atraumatic Skin: no rashes, warm and dry Psychiatric: Orientation: alert and oriented x 3 Results & Data Vital Signs (Past 12 Hours) Vital Signs Temp Pulse Resp BP BP Pulse Ox O2 Del Method 04/23/23 11:16 37.4 C 84 16 122/84 97 Room Air 04/23/23 07:38 37.1 C 86 16 116/80 98 Room Air 04/23/23 04:00 37.5 C 83 20 117/79 98 Room Air 04/23/23 00:00 37.1 C 90 20 122/82 97 Room Air Diagnostic Findings CT OF THE ABDOMEN AND PELVIS WITH CONTRAST CLINICAL HISTORY: Lower abdominal pain. COMPARISON STUDY: None. TECHNIQUE: Following IV administration of 94 mL of Optiray, axial images of the abdomen and pelvis were obtained from the lung bases to the proximal femurs. Images were reviewed in the axial, sagittal, and coronal planes. IV contrast was administered without complication. Automated exposure control was utilized for the study. A dose lowering technique was utilized adhering to the principles of ALARA. CT DOSE: 781.11 mGy.cm FINDINGS: Lung bases are unremarkable. No pneumatosis, free air or portal venous gas is present. There are numerous hepatic hypodense masses. Index segment 6 lesion on axial image 125 of 381 measures 4.4 x 2.7 cm. A segment 8 lesion on image 47 measures 4 x 3.6 cm. There is no biliary ductal dilatation. Spleen, adrenal glands, kidneys and pancreas are unremarkable. Note is made of a large lobulated heterogeneously enhancing mass arising from the proximal transverse colon. This measures approximately 9.4 x 5.2 cm. This does not result in a bowel obstruction. There is an adjacent 5 x 3.8 cm mass extending into the mesentery. This could reflect extension of the primary tumor or a pathologic lymph node. This results in severe narrowing of the superior mesenteric vein. Mild adjacent stranding is present. Additional pathologic lymph nodes are noted. Index node measures 1.4 x 1 cm and is located along the inferior right hepatic lobe. There are possible smaller additional nodes versus peritoneal implants. The appendix is normal. Submucosal fat deposition within the colon and rectum is noted. No suspicious osseous lesions are noted. IMPRESSION: 1. Large mass arising from the proximal transverse colon, measuring approximately 9.4 x 5.2 cm, with exophytic component extending into the mesentery. 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 GI consultation is recommended. 2. 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 3. Abdominal pathologic lymphadenopathy, as described above. Possible small peritoneal implants. 4. No resultant bowel obstruction. 5. Submucosal fat deposition within the colon and rectum. This can be seen in the setting of inflammatory bowel diseas
[2023-04-23] MEDS ORDERED: OPTIRAY 320 100ml IV ONE (11:50)
--- NOTE | 2023-04-23 17:01 | CT Scan Report ---
CT SCAN OF THE CHEST WITH IV CONTRAST CLINICAL HISTORY: Colon mass. Metastatic assessment. COMPARISON STUDY: Abdominal CT dated 04/22/2023. TECHNIQUE: Following the IV administration of 93 cc of Optiray 320, CT scan of the thorax was perform ed from the thoracic inlet to the upper abdomen. Images are reviewed in the axial, sagittal, and anupam nal planes. IV contrast was administered without complication. A dose lowering technique was utilize d adhering to the principles of ALARA. CT DOSE: 338.97 mGy.cm FINDINGS: Thyroid: Imaged portions of the thyroid gland are normal in size and attenuation. Thoracic aorta: The thoracic aorta is normal in caliber and demonstrates bovine variant arch anatomy. No dissection is seen. Pulmonary vasculature: The pulmonary trunk is normal in caliber. There are no filling defects identif ied in the central pulmonary vessels to indicate pulmonary embolus. Note that this examination was no t protocoled for evaluation of the pulmonary arteries. Heart: The heart is normal in size and without pericardial effusion. Lungs and pleural spaces: There is no airspace consolidation or pleural effusion. Minimal pleural-bas ed nodularity along the right major fissure is of doubtful significant. No suspicious pulmonary lesio n is seen. The trachea and central airways are clear. Mediastinum: There is no mediastinal lymphadenopathy. Lucia: Clear. Axillae: There is no axillary lymphadenopathy. Upper abdomen: Again seen is evidence of multifocal hepatic metastatic disease. Lesions measure up to 4.4 cm. Partially visualized upper abdominal viscera is otherwise within normal limits. Skeletal structures: No lytic or blastic bony lesions are seen. IMPRESSION: 1. There is no evidence of intrathoracic metastatic disease. 2. Multifocal hepatic metastatic disease is similar to yesterday. 3. There is no airspace consolidation or pleural effusion. ACT 112: Negative or not required by law. Electronically signed by: Crow Knowles M.D. 04/23/2023 4:59 PM
[2023-04-24] MEDS: LACTATED RINGER'S 1,000 ML IV SCH ×3 (03:51→19:29)
[2023-04-24 06:21] LABS: Albumin Level 3.1 gm/dl (3.4-5.0); BUN Creatinine Ratio 8.2 (10-20); Bilirubin,Total 0.5 mg/dl (0.2-1.0); Creatinine Clr Calc Pharmacy 119.9 ml/min; Est GFR (African American) 133.6 ml/min; Est GFR (Non-African American) 115.3 ml/min; Globulin 3.2 gm/dl (2.5-4.0); Total Protein 6.3 gm/dl (6.0-8.3)
[2023-04-24] MEDS: azaTHIOprine 50 MG TAB PO SCH (07:56)
[2023-04-24] MEDS: predniSONE 10 MG TABLET PO SCH (07:56)
--- NOTE | 2023-04-24 10:12 | Hospitalist Progress Note ---
Date of Service April 24, 2023 Assessment & Plan (1) Colonic mass: Plan: 22-year-old female with history of Crohn's disease on infliximab and Remicade found to have colonic mass with mets to liver. Colonic mass with mets to liver -CEA 0.4, LDH elevated, CA 125 pending -Per oncology, although imaging suggestive of adenocarcinoma, clinical symptoms and labs suggest possible lymphoproliferative process; await core biopsy from planned 04/25 colonoscopy -CT chest w/o thoracic disease -Pending flow cytometry Crohn's disease -Continue prednisone 25mg PO daily and azathioprine 50mg PO daily. Outpatient q 6w infliximab. Recurrent fevers, leukocytosis -Most likely in setting of colonic mass, lower suspicion for sepsis -Blood cultures pending -Procal and lactate negative -- abx deferred -Peripheral smear pending Diet - Clear liquids. NPO midnight DVT Prophylaxis Will hold prior to colonoscopy Dispo - Med/surg, pending results from colonoscopy CODE: FULL (2) Crohn's disease: (3) SIRS (systemic inflammatory response syndrome): Admission and Anticipated Discharge Date Admission Date: April 22, 2023 Supervising Physician Co-Signing Physician Notes Attending attestation Pt seen and examined in concert with Dr. Perea. In agreement with the documented findings as noted in the resident documentation with any exceptions or additions as noted here. Minimal abdominal pain on history today. On examination, S1/S2 nl RRR no MCG. CTAB. Abd diffusely minimal TTP without guarding, ND BS+ve Abnormal abdominal CT scan with concern for mass w/ metastatic disease to liver - GI and oncology consult - pending smear and send out testing for markers and initiate prep for colonoscopy on Tuesday by GI recommendations. Crohn's disease - continue prednisone and azathioprine, monitor for changes Recurrent fevers - no fevers appreciated at present, no report of same. Monitor, check CBC in AM for stability of WBC Else see resident documentation as noted. Subjective Patient has not complaints today. No abdominal pain. Tolerated clears. Doing well. Denies subj fever. Parents at bedside, requesting printed records. Asked about labs. Not yet able to access patient portal. Review of Systems Review of Systems: All systems reviewed & are unremarkable except as noted in HPI & below Physical Exam Physical Exam: General: Grossly A&O. NAD. Cooperative. HEENT: Atraumatic, normocephalic. Pulm: CTAB. -wheezes, -rales, -rhonchi. No accessory muscle use. Cardiac: RRR, -mrg. Abdominal: nondistended, soft. Mild RLQ discomfort on palpation, attributes to recent meal. Results & Data Results & Data Vital Signs (Past 12 Hours) Vital Signs Temp Pulse Pulse Resp BP BP Pulse Ox 04/24/23 07:20 37.4 C 75 16 119/81 97 04/24/23 07:18 115 H 04/24/23 05:00 37.8 C H 86 20 116/80 94 04/24/23 00:06 37.8 C H 85 20 125/84 98 04/23/23 23:20 O2 Del Method 04/24/23 07:20 Room Air 04/24/23 07:18 04/24/23 05:00 Room Air 04/24/23 00:06 Room Air 04/23/23 23:20 Room Air Resident Activity Tracking Resident Involvement: Resident Care Provided Care Provided: Adult Hospital Medicine (2) Crohn's disease Digestive disease complication type: unspecified complication Gastrointestinal tract location: unspecified location Qualified Code(s): K50.919 - Crohn's disease, unspecified, with unspecified complications
--- NOTE | 2023-04-24 10:29 | Gastroenterology Progress Note ---
Date of Service April 24, 2023 Assessment & Plan (1) Colonic mass: Plan: Unusual for a recent colonoscopy and now with development concerning lesion. She does not have any symptoms either historically and/or exam that she is obstructed. Colonoscopy prep this evening Colonoscopy tomorrow with Dr. Noyola [email or web address]. at midnight (2) Crohn's disease: Admission and Anticipated Discharge Date Admission Date: April 22, 2023 Subjective No complaints this morning, reviewed CT scan of the chest without evidence of pathology. Physical Exam Constitutional: WD/WN, vitals as above Cardiovascular: RRR, no murmur, no edema Gastrointestinal (Abdomen): normal bowel sounds, soft, nontender, no hepatosplenomegaly Results & Data Vital Signs (Past 12 Hours) Vital Signs Temp Pulse Pulse Resp BP BP Pulse Ox 04/24/23 07:20 37.4 C 75 16 119/81 97 04/24/23 07:18 115 H 04/24/23 05:00 37.8 C H 86 20 116/80 94 04/24/23 00:06 37.8 C H 85 20 125/84 98 04/23/23 23:20 O2 Del Method 04/24/23 07:20 Room Air 04/24/23 07:18 04/24/23 05:00 Room Air 04/24/23 00:06 Room Air 04/23/23 23:20 Room Air (2) Crohn's disease Digestive disease complication type: unspecified complication Gastrointestinal tract location: unspecified location Qualified Code(s): K50.919 - Crohn's disease, unspecified, with unspecified complications
--- NOTE | 2023-04-24 11:01 | Surgery Progress Note ---
Date of Service April 24, 2023 Assessment & Plan (1) Colonic mass: Plan: prep tonight colonoscopy in AM no acute surgical needs Present on Admission?: Yes Admission and Anticipated Discharge Date Admission Date: April 22, 2023 Subjective feeling better no nausea/vomiting clear diet prep tonight and scope in AM Review of Systems Constitutional: no fever and no chills Respiratory: no cough and no dyspnea Cardiovascular: no chest pain Gastrointestinal: no abdominal pain, no nausea, no vomiting and no change in bowel habits Genitourinary: no dysuria Musculoskeletal: no back pain Neurologic: no localized weakness and no generalized weakness Physical Exam Constitutional: WD/WN, vitals as above Eyes: PERRL, conjunctivae normal, anicteric sclerae ENMT: external ear and nose normal, oropharynx normal Neck: trachea midline Respiratory: normal respiratory effort, lungs clear to auscultation Cardiovascular: RRR, no murmur, no edema Chest (Breasts): normal inspection/palpation of breasts Gastrointestinal (Abdomen): Inspection/Auscultation: abdomen normal to inspection and normal bowel sounds; abdomen not distended Percussion/Palpation: abdomen soft; abdomen nontender, no guarding and abdomen not rigid Musculoskeletal: Head/Neck/Chest: normocephalic and head atraumatic Skin: no rashes, warm and dry Results & Data Vital Signs (Past 12 Hours) Vital Signs Temp Pulse Pulse Resp BP BP Pulse Ox 04/24/23 07:20 37.4 C 75 16 119/81 97 04/24/23 07:18 115 H 04/24/23 05:00 37.8 C H 86 20 116/80 94 04/24/23 00:06 37.8 C H 85 20 125/84 98 04/23/23 23:20 O2 Del Method 04/24/23 07:20 Room Air 04/24/23 07:18 04/24/23 05:00 Room Air 04/24/23 00:06 Room Air 04/23/23 23:20 Room Air
[2023-04-24] MEDS: POLYETHYLENE (MIRALAX) 17 GM PACK PO SCH (17:19)
[2023-04-24] MEDS ORDERED: HEPARIN SOD 5,000 UNIT/0.5 ML VIAL SQ ONE (21:00)
[2023-04-25] MEDS: LACTATED RINGER'S 1,000 ML IV SCH (02:51)
[2023-04-25] MEDS: POLYETHYLENE (MIRALAX) 17 GM PACK PO SCH (05:41)
--- NOTE | 2023-04-25 07:11 | Hospitalist Progress Note ---
Date of Service April 25, 2023 Assessment & Plan (1) Colonic mass: Plan: 22-year-old female with history of Crohn's disease on infliximab and Remicade found to have colonic mass with mets to liver. Colonic mass with mets to liver -CEA 0.4, LDH elevated, CA 125 pending -Per oncology, although imaging suggestive of adenocarcinoma, clinical symptoms and labs suggest possible lymphoproliferative process; await core biopsy from planned 04/25 colonoscopy -CT chest w/o thoracic disease -Pending flow cytometry Crohn's disease -Continue prednisone 25mg PO daily and azathioprine 50mg PO daily. Outpatient q 6w infliximab. Recurrent fevers, leukocytosis -Most likely in setting of colonic mass, lower suspicion for sepsis -Blood cultures pending -Procal and lactate negative -- abx deferred -Peripheral smear pending Diet - Clear liquids. NPO midnight DVT Prophylaxis Will hold prior to colonoscopy Dispo - Med/surg, pending results from colonoscopy CODE: FULL (2) Crohn's disease: (3) SIRS (systemic inflammatory response syndrome): Admission and Anticipated Discharge Date Admission Date: April 22, 2023 Review of Systems Review of Systems: As per above Results & Data Results & Data Vital Signs (Past 12 Hours) Vital Signs Temp Pulse Pulse Resp BP Pulse Ox Pulse Ox 04/25/23 03:58 36.7 C 78 16 131/76 97 04/25/23 01:37 04/24/23 23:04 73 04/24/23 23:20 36.9 C 68 20 132/83 97 04/24/23 20:00 37.2 C 88 20 125/83 96 04/24/23 19:41 97 O2 Del Method O2 Del Method 04/25/23 03:58 Room Air 04/25/23 01:37 Room Air 04/24/23 23:04 04/24/23 23:20 Room Air 04/24/23 20:00 Room Air 04/24/23 19:41 Room Air Resident Activity Tracking Resident Involvement: Resident Care Provided Care Provided: Adult Hospital Medicine (2) Crohn's disease Digestive disease complication type: unspecified complication Gastrointestinal tract location: unspecified location Qualified Code(s): K50.919 - Crohn's disease, unspecified, with unspecified complications
[2023-04-25] MEDS: azaTHIOprine 50 MG TAB PO SCH (07:41)
[2023-04-25] MEDS: predniSONE 10 MG TABLET PO SCH (07:41)
[2023-04-25 08:06] LABS: Basophils # (auto) 0.11 K/uL (0-0.2); Basophils % (auto) 0.7 %; Eosinophils # (auto) 0.15 K/uL (0-0.50); Hematocrit (blood only) 38.4 % (37.0-47.0); Hemoglobin 12.7 g/dl (12.0-16.0); Immature Granulocytes % (auto) 0.6 %; Lymphocytes % (auto) 23.9 %; Mean Corpuscular Hemoglobin 29.3 pg (25.0-34.0); Mean Corpuscular Hgb Conc 33.1 g/dL (32.0-36.0); Mean Corpuscular Volume 88.7 fL (80.0-100.0); Mean Platelet Volume 9.7 fL (9.4-12.4); Monocytes % (auto) 14.2 %; Neutrophils # (auto) 9.23 K/uL (1.40-6.50); Neutrophils % (auto) 59.6 %; Platelet Count 552 K/uL (130-400); RDW Coefficient of Variation 12.2 % (11.5-14.5); RDW Standard Deviation 39.5 fL (36.4-46.3); Red Blood Count 4.33 M/uL (4.20-5.40); White Blood Count 15.49 K/ul (4.8-10.8)
[2023-04-25 08:26] LABS: Albumin Globulin Ratio 0.9 (0.9-2); Albumin Level 3.3 gm/dl (3.4-5.0); Bilirubin,Total 0.4 mg/dl (0.2-1.0); Calcium 9.4 mg/dl (8.6-10.3); Creatinine Clr Calc Pharmacy 112.2 ml/min; Est GFR (African American) 123.3 ml/min; Est GFR (Non-African American) 106.4 ml/min; Globulin 3.5 gm/dl (2.5-4.0); Potassium 3.7 mmol/L (3.5-5.1); Total Protein 6.8 gm/dl (6.0-8.3)
--- NOTE | 2023-04-25 09:01 | Anesthesiology Consultation ---
Date of Service April 25, 2023 Assessment & Plan (1) Encounter for pre-operative examination: History Surgery Operation Date: 04/25/23 16:10 Proposed Procedures p Colonoscopy Dr. Dennys Noyola, Height/Weight Height: 5 ft 8 in Weight: 70.9 kg Allergies Allergy/AdvReac Type Severity Reaction Status Date / Time No Known Allergies Allergy Unverified 04/22/23 15:52 Medications Home Medications Medication Instructions Recorded Confirmed Last Taken azathioprine 50 mg tablet 50 mg PO DAILY 04/22/23 04/22/23 Unknown infliximab 100 mg intravenous 0 mg IV .EVERY 6 WEEKS 04/22/23 04/22/23 Unknown solution (Remicade) Active Medications Generic Name Dose Route Start Last Admin Trade Name Freq PRN Reason Stop Dose Admin Azathioprine 50 mg 04/23/23 09:00 04/25/23 07:41 Azathioprine 50 Mg Tab PO 05/23/23 08:59 50 mg DAILY DORA Administration Enoxaparin Sodium 40 mg 04/23/23 21:00 04/23/23 20:11 Enoxaparin Inj 40 Mg/0.4 Ml Syr SQ 05/23/23 20:59 40 mg QPM DORA Administration Lactated Ringer's 1,000 mls @ 125 mls/hr 04/22/23 20:40 04/25/23 02:51 Lr IV 05/22/23 20:39 125 mls/hr .Q8H DORA Administration Prednisone 25 mg 04/23/23 09:00 04/25/23 07:41 Prednisone 10 Mg Tablet PO 05/23/23 08:59 25 mg QAM DORA Administration Past Medical History Medical History (Updated 04/25/23 @ 09:01 by Christina Ramirez MD) Colonic mass Crohn's disease Lymphadenopathy No pertinent family history SIRS (systemic inflammatory response syndrome) Past Surgical History Surgical History No pertinent past surgical history Social History Smoking Status: Never smoker Hx Alcohol Use: No Hx Substance Use: No Physical Exam Vital Signs Last Vital Signs Temp 36.9 C 04/25/23 07:54 Pulse 73 04/25/23 07:54 Resp 16 04/25/23 07:54 BP 132/87 04/25/23 07:54 Pulse Ox 98 04/25/23 07:54 O2 Del Method Room Air 04/25/23 07:54 Testing Laboratory Results 04/25/23 07:50 04/25/23 07:50 Urine Color Barco 04/22/23 12:57 Urine Appearance Cloudy (Clear) A 04/22/23 12:57 Urine pH 5.5 (4.5-7.5) 04/22/23 12:57 Ur Specific Moore 1.028 (1.000-1.030) 04/22/23 12:57 Urine Protein Trace (Negative) H 04/22/23 12:57 Urine Glucose (UA) Negative (Negative) 04/22/23 12:57 Urine Ketones Trace (Negative) H 04/22/23 12:57 Urine Nitrite Positive (Negative) A 04/22/23 12:57 Ur Leukocyte Esterase Trace (Negative) H 04/22/23 12:57 Urine WBC (Auto) 1-5 /hpf (0-5) 04/22/23 12:57 Urine RBC (Auto) 0-4 /hpf (0-4) 04/22/23 12:57 U Hyaline Cast (Auto) 1-5 /lpf (0-5) 04/22/23 12:57 U Epithel Cells (Auto) >30 /lpf (0-5) H 04/22/23 12:57 Urine Bacteria (Auto) Negative (Negative) 04/22/23 12:57 04/22/23 17:32 Aerobic Blood Culture - Preliminary Blood No growth in Aerobic bottle after 48 hours. Anaerobic Blood Culture - Preliminary No growth in Anaerobic bottle after 48 hours. 04/22/23 17:24 Aerobic Blood Culture - Preliminary Blood No growth in Aerobic bottle after 48 hours. Anaerobic Blood Culture - Preliminary No growth in Anaerobic bottle after 48 hours.
--- NOTE | 2023-04-25 09:16 | History & Physical Bridge Note ---
Date of Service April 25, 2023 History & Physical Bridge Note I have reviewed the History & Physical and in the interval since the performance of the History & Physical I have noted the following changes of clinical significance: no changes noted. Keep NPO. Proceed with colonoscopy today for further evaluation of abnormal CT scan of the colon. Supervising Physician Co-Signing Physician Notes Agree with VENTURA Dexter as above Abd: Soft, NT, ND, +BS Continue current therapy and supportive care Proceed with colonoscopy now
[2023-04-25] MEDS ORDERED: ONDANSETRON INJ 2 MG/ML 2 ML VIAL ONE (09:49)
[2023-04-25] MEDS ORDERED: PROPOFOL IV EMULSION 10 MG/ML 20 ML VIAL IV ONE ×2 (09:49)
[2023-04-25] MEDS ORDERED: LIDOCAINE 2% 2 ML VIAL/AMP(20MG/ML) INFIL ONE (09:49)
--- NOTE | 2023-04-25 10:12 | GI REPORT ---
Patient Name: Brigette Loza Procedure Date: 04/25/2023 9:13 AM Date of : 2000 Admit Type: Inpatient Age: 22 Gender: Female Attending MD: Dwaine Noyola DO, Procedure: Colonoscopy Providers: Dwaine Noyola DO Referring MD: [facility] Indications: Abnormal CT of the GI tract Medicines: Monitored Anesthesia Care Complications: No immediate complications. Estimated Blood Loss: Estimated blood loss: none. Procedure: Pre-Anesthesia Assessment: - Prior to the procedure, a History and Physical was performed, and patient medications and allergies were reviewed. The patient's tolerance of previous anesthesia was also reviewed. The risks and benefits of the procedure and the sedation options and risks were discussed with the patient. All questions were answered, and informed consent was obtained. Prior Anticoagulants: The patient has taken no anticoagulant or antiplatelet agents. ASA Grade Assessment: II - A patient with mild systemic disease. After reviewing the risks and benefits, the patient was deemed in satisfactory condition to undergo the procedure. After I obtained informed consent, the scope was passed under direct vision. Throughout the procedure, the patient's blood pressure, pulse, and oxygen saturations were monitored continuously. The Scope was introduced through the anus and advanced to the terminal ileum. The colonoscopy was performed without difficulty. The patient tolerated the procedure well. The quality of the bowel preparation was good. The terminal ileum, ileocecal valve, appendiceal orifice, and rectum were photographed. Findings: The perianal and digital rectal examinations were normal. An infiltrative partially obstructing large mass was found in the proximal transverse colon. The mass was partially circumferential (involving two-thirds of the lumen circumference). The mass measured seven cm in length. In addition, its diameter measured thirty mm. Oozing was present. Biopsies were taken with a cold forceps for histology. Inflammation characterized by erythema, friability and loss of vascularity was found in a continuous and circumferential pattern from the anus to the cecum. The inflammation was moderate in severity. Biopsies were taken with a cold forceps for histology in the right and left colon. Impression: - Malignant partially obstructing tumor in the proximal transverse colon. Biopsied. - Crohn's disease with colonic involvement. Inflammation was found from the anus to the cecum. This was moderate in severity. Biopsied. Recommendation: - Return patient to [facility] for ongoing care. - Advance diet as tolerated. - Continue present medications. - Refer to a surgeon as previously scheduled. Dwaine Gilbert Case, DO 04/25/2023 10:10:11 AM Note Initiated On: 04/25/2023 9:13 AM Number of Addenda: 0 I attest to the content of the Intraoperative Record and orders documented therein, exceptions below {[id number]}
--- NOTE | 2023-04-25 11:10 | Anesthesiology Progress Note ---
Date of Service April 25, 2023 Anesthesia Post Procedure Vital Signs Vital Signs: Temp Pulse Pulse Resp BP BP Pulse Ox 04/25/23 10:33 81 16 114/80 100 04/25/23 10:18 97 H 16 122/85 99 04/25/23 10:03 72 16 93/52 L 96 04/25/23 09:06 36.1 C L 87 16 139/89 100 04/25/23 07:54 36.9 C 73 16 132/87 98 04/25/23 07:21 86 04/25/23 03:58 36.7 C 78 16 131/76 97 04/25/23 01:37 04/24/23 23:04 73 04/24/23 23:20 36.9 C 68 20 132/83 97 04/24/23 20:00 37.2 C 88 20 125/83 96 04/24/23 19:41 04/24/23 15:33 87 04/24/23 15:05 36.8 C 72 16 124/81 98 04/24/23 11:38 36.9 C 77 18 127/83 97 Pulse Ox O2 Del Method O2 Del Method 04/25/23 10:33 Room Air 04/25/23 10:18 Room Air 04/25/23 10:03 Room Air 04/25/23 09:06 Room Air 04/25/23 07:54 Room Air 04/25/23 07:21 04/25/23 03:58 Room Air 04/25/23 01:37 Room Air 04/24/23 23:04 04/24/23 23:20 Room Air 04/24/23 20:00 Room Air 04/24/23 19:41 97 Room Air 04/24/23 15:33 04/24/23 15:05 Room Air 04/24/23 11:38 Room Air Pain Intensity Pelvic: Pain Intensity: 4 Transfer of Care Handoff Completed per policy Notes Mental Status: alert / awake / arousable and participated in evaluation Patient Amnestic to Procedure: Yes Nausea / Vomiting: adequately controlled Pain: adequately controlled Airway Patency, RR, SpO2: stable & adequate BP & HR: stable & adequate Hydration State: stable & adequate Anesthetic Complications: no major complications apparent and Pt Satisfied with anesthetic care
--- NOTE | 2023-04-25 15:06 | Communication Note ---
Date of Service: April 25, 2023 Patient not examined today, chart reviewed. Colonoscopy report and images reviewed, large partially obstructing mass in the transverse colon. This was biopsied. Discussed with hospitalist resident, Shikha Vincent, who stated patient likely being discharged later today and will have further care in [facility] where her family is from. CEA and CA-125 wnl. Will need to await pathology results. Our services signing off, please call with questions/concerns.
--- NOTE | 2023-04-25 16:20 | Hematology/Oncology Prog Note ---
Date of Service April 25, 2023 Assessment & Plan (1) Colonic mass: Plan Colonoscopy highly concerning for colon cancer. Await pathology results. She plans to return home ( [facility]) tomorrow with case management trying to set her up with an oncologist there. Given fairly aggressive looking disease, I explained to her that I would recommend she be evaluated at [facility] as soon as possible. I plan to call her with preliminary results of pathology on Tuesday. Admission and Anticipated Discharge Date Admission Date: April 22, 2023 Subjective Colonoscopy obtained today showed malignant appearing partially obstructing tumor in the proximal transverse colon for which biopsy was obtained which is pendingg Results & Data Vital Signs (Past 12 Hours) Vital Signs Temp Pulse Pulse Resp BP BP Pulse Ox 04/25/23 16:05 94 H 04/25/23 15:53 36.6 C 77 20 117/79 98 04/25/23 15:49 37.2 C 76 16 119/81 131/76 98 04/25/23 11:17 37.2 C 76 16 119/81 98 04/25/23 10:33 81 16 114/80 100 04/25/23 10:18 97 H 16 122/85 99 04/25/23 10:03 72 16 93/52 L 96 04/25/23 09:06 36.1 C L 87 16 139/89 100 04/25/23 07:54 36.9 C 73 16 132/87 98 04/25/23 07:21 86 O2 Del Method 04/25/23 16:05 04/25/23 15:53 Room Air 04/25/23 15:49 04/25/23 11:17 Room Air 04/25/23 10:33 Room Air 04/25/23 10:18 Room Air 04/25/23 10:03 Room Air 04/25/23 09:06 Room Air 04/25/23 07:54 Room Air 04/25/23 07:21
--- NOTE | 2023-04-25 16:21 | Discharge Summary ---
Date of Service April 25, 2023 Admission HPI Per Admitting Provider Brigette Loza is a 22 year old female who presents to the ER with abdominal cramping and fever. She reports initial pelvic cramping lasting for minutes at a time associated with her period starting April 13. However the abdominal cramping continued after her period ended and she followed up with her advertising space clerk today who found no concern on her pelvic exam and advised the patient to come to the ER for further workup. Pain severity 7/10 at worst. Not upper abdominal without radiation. No exacerbating or alleviating factors. Associated fevers every other day for the last week. She denies any nausea, vomiting. No change in bowels but she has chronic diarrhea due to Crohn's for which she is currently taking a prednisone taper (currently on 25mg PO daily and reducing by 5mg/day every week). No melena or bright red blood on stool. In the ER CT was concerning for colon mass with metastatic disease to her liver. ER physician discussed with oncology, surgery and gastroenterology and advised admission to medicine for ongoing management. Admission Exam Per Admitting Provider Constitutional: WD/WN, vitals as above Eyes: + anicteric sclerae; normal pupil size Respiratory: normal respiratory effort, lungs clear to auscultation Cardiovascular: RRR, no murmur, no edema Gastrointestinal (Abdomen): Inspection/Auscultation: abdomen normal to inspection; abdomen not distended Percussion/Palpation: + abdomen tender (epigastric) and abdomen soft; no guarding and abdomen not rigid Musculoskeletal: no cyanosis or clubbing, extremities motor strength 5/5 Skin: no rashes, warm and dry Neurologic: moves all extremities and awake; not confused Psychiatric: A+Ox3, euthymic affect Principal Diagnosis Malignant colon mass Discharge Exam Constitutional WD/WN, vitals as above Eyes Anicteric sclerae ENMT External ears and nose normal, moist mucous membranes Respiratory No respiratory distress, good aeration. No cough or increased work of breathing Cardiovascular Limbs well perfused. Regular rate and rhythm. No lower extremity edema. Skin no rashes, warm and dry Psychiatric A+Ox3, euthymic affect Discharge Data Allergies Allergy/AdvReac Type Severity Reaction Status Date / Time No Known Allergies Allergy Unverified 04/22/23 15:52 Consultations 04/22/23 17:21 Consult Gastroenterology Routine Consult Oncology Routine 04/22/23 17:22 ED Decision to Admit Stat Procedures Performed Operation Date: 04/25/23 16:10 Actual Procedures p Colonoscopy Biopsy Cytology - Dwaine Gilbert Case, DO Ordered Studies 04/22/23 15:51 CT abd pelvis IV con only Stat 04/23/23 09:50 CT chest with contrast [CT chest diagnostic w con] Routine Abdomen/Pelvis CT 04/22/23 15:51 CT OF THE ABDOMEN AND PELVIS WITH CONTRAST CLINICAL HISTORY: Lower abdominal pain. COMPARISON STUDY: None. TECHNIQUE: Following IV administration of 94 mL of Optiray, axial images of the abdomen and pelvis were obtained from the lung bases to the proximal femurs. Images were reviewed in the axial, sagittal, and coronal planes. IV contrast was administered without complication. Automated exposure control was utilized for the study. A dose lowering technique was utilized adhering to the principles of ALARA. CT DOSE: 781.11 mGy.cm FINDINGS: Lung bases are unremarkable. No pneumatosis, free air or portal venous gas is present. There are numerous hepatic hypodense masses. Index segment 6 lesion on axial image 125 of 381 measures 4.4 x 2.7 cm. A segment 8 lesion on image 47 measures 4 x 3.6 cm. There is no biliary ductal dilatation. Spleen, adrenal glands, kidneys and pancreas are unremarkable. Note is made of a large lobulated heterogeneously enhancing mass arising from the proximal transverse colon. This measures approximately 9.4 x 5.2 cm. This does not result in a bowel obstruction. There is an adjacent 5 x 3.8 cm mass extending into the mesentery. This could reflect extension of the primary tumor or a pathologic lymph node. This results in severe narrowing of the superior mesenteric vein. Mild adjacent stranding is present. Additional pathologic lymph nodes are noted. Index node measures 1.4 x 1 cm and is located along the inferior right hepatic lobe. There are possible smaller additional nodes versus peritoneal implants. The appendix is normal. Submucosal fat deposition within the colon and rectum is noted. No suspicious osseous lesions are noted. IMPRESSION: 1. Large mass arising from the proximal transverse colon, measuring approximately 9.4 x 5.2 cm, with exophytic component extending into the mesentery. 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 GI consultation is recommended. 2. 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 3. Abdominal pathologic lymphadenopathy, as described above. Possible small peritoneal implants. 4. No resultant bowel obstruction. 5. Submucosal fat deposition within the colon and rectum. This can be seen in the setting of inflammatory bowel disease. ACT 112: Positive. There are findings on this exam that require communication between the performing entity and the patient following Patient Test Result Information Act ([place] Act 112) guidelines. Electronically signed by: Jordan Valdivia M.D. 04/22/2023 4:[address] 04/23/23 09:50 CT SCAN OF THE CHEST WITH IV CONTRAST CLINICAL HISTORY: Colon mass. Metastatic assessment. COMPARISON STUDY: Abdominal CT dated 04/22/2023. TECHNIQUE: Following the IV administration of 93 cc of Optiray 320, CT scan of the thorax was performed from the thoracic inlet to the upper abdomen. Images are reviewed in the axial, sagittal, and coronal planes. IV contrast was administered without complication. A dose lowering technique was utilized adhering to the principles of ALARA. CT DOSE: 338.97 mGy.cm FINDINGS: Thyroid: Imaged portions of the thyroid gland are normal in size and attenuation. Thoracic aorta: The thoracic aorta is normal in caliber and demonstrates bovine variant arch anatomy. No dissection is seen. Pulmonary vasculature: The pulmonary trunk is normal in caliber. There are no filling defects identified in the central pulmonary vessels to indicate pulmonary embolus. Note that this examination was not protocoled for evaluation of the pulmonary arteries. Heart: The heart is normal in size and without pericardial effusion. Lungs and pleural spaces: There is no airspace consolidation or pleural effusion. Minimal pleural-based nodularity along the right major fissure is of doubtful significant. No suspicious pulmonary lesion is seen. The trachea and central airways are clear. Mediastinum: There is no mediastinal lymphadenopathy. Lucia: Clear. Axillae: There is no axillary lymphadenopathy. Upper abdomen: Again seen is evidence of multifocal hepatic metastatic disease. Lesions measure up to 4.4 cm. Partially visualized upper abdominal viscera is otherwise within normal limits. Skeletal structures: No lytic or blastic bony lesions are seen. IMPRESSION: 1. There is no evidence of intrathoracic metastatic disease. 2. Multifocal hepatic metastatic disease is similar to yesterday. 3. There is no airspace consolidation or pleural effusion. ACT 112: Negative or not required by law. Electronically signed by: Crow Knowles M.D. 04/23/2023 4:59 PM 04/25/23 04/25/23 04/23/23 Range/Units 07:50 07:50 07:03 WBC 15.49 H (4.8-10.8) K/ul RBC 4.33 (4.20-5.40) M/uL Hgb 12.7 (12.0-16.0) g/dl Hct 38.4 (37.0-47.0) % MCV 88.7 (80.0-100.0) fL MCH 29.3 (25.0-34.0) pg MCHC 33.1 (32.0-36.0) g/dL RDW Std Deviation 39.5 (36.4-46.3) fL RDW Coeff of Jerrell 12.2 (11.5-14.5) % Plt Count 552 H (130-400) K/uL MPV 9.7 (9.4-12.4) fL Immature Gran % (Auto) 0.6 % Neut % (Auto) 59.6 % Lymph % (Auto) 23.9 % Jewell % (Auto) 14.2 % Eos % (Auto) 1.0 % Baso % (Auto) 0.7 % Neut # (Auto) 9.23 H (1.40-6.50) K/uL Lymph # (Auto) 3.70 H (1.2-3.4) K/uL Jewell # (Auto) 2.20 H (0.11-0.59) K/uL Eos # (Auto) 0.15 (0-0.50) K/uL Baso # (Auto) 0.11 (0-0.2) K/uL Immature Gran # (Auto) 0.10 (0.01-0.20) K/uL Peripher Smr Path Cons Sodium 138 (136-145) mmol/L Potassium 3.7 (3.5-5.1) mmol/L Chloride 101 (98-107) mmol/L Carbon Dioxide 32 (21-32) mmol/L Anion Gap 5 (3-11) BUN 7 (6-23) mg/dl Creatinine 0.78 (0.6-1.2) mg/dl Est Cr Clr Drug Dosing 112.2 ml/min Est GFR ( Amer) 123.3 ml/min Est GFR (Non-Af Amer) 106.4 ml/min BUN/Creatinine Ratio 9.0 L (10-20) Glucose 89 (70-99(Fasting)) mg/dl Calcium 9.4 (8.6-10.3) mg/dl Total Bilirubin 0.4 (0.2-1.0) mg/dl AST 13 (13-39) U/L ALT 10 (7-52) U/L Alkaline Phosphatase 77 (34-104) U/L Total Protein 6.8 (6.0-8.3) gm/dl Albumin 3.3 L (3.4-5.0) gm/dl Globulin 3.5 (2.5-4.0) gm/dl Albumin/Globulin Ratio 0.9 (0.9-2) CA 125 Antigen (<35) U/mL 04/23/23 Range/Units 07:03 WBC (4.8-10.8) K/ul RBC (4.20-5.40) M/uL Hgb (12.0-16.0) g/dl Hct (37.0-47.0) % MCV (80.0-100.0) fL MCH (25.0-34.0) pg MCHC (32.0-36.0) g/dL RDW Std Deviation (36.4-46.3) fL RDW Coeff of Jerrell (11.5-14.5) % Plt Count (130-400) K/uL MPV (9.4-12.4) fL Immature Gran % (Auto) % Neut % (Auto) % Lymph % (Auto) % Jewell % (Auto) % Eos % (Auto) % Baso % (Auto) % Neut # (Auto) (1.40-6.50) K/uL Lymph # (Auto) (1.2-3.4) K/uL Jewell # (Auto) (0.11-0.59) K/uL Eos # (Auto) (0-0.50) K/uL Baso # (Auto) (0-0.2) K/uL Immature Gran # (Auto) (0.01-0.20) K/uL Peripher Smr Path Cons Sodium (136-145) mmol/L Potassium (3.5-5.1) mmol/L Chloride (98-107) mmol/L Carbon Dioxide (21-32) mmol/L Anion Gap (3-11) BUN (6-23) mg/dl Creatinine (0.6-1.2) mg/dl Est Cr Clr Drug Dosing ml/min Est GFR ( Amer) ml/min Est GFR (Non-Af Amer) ml/min BUN/Creatinine Ratio (10-20) Glucose (70-99(Fasting)) mg/dl Calcium (8.6-10.3) mg/dl Total Bilirubin (0.2-1.0) mg/dl AST (13-39) U/L ALT (7-52) U/L Alkaline Phosphatase (34-104) U/L Total Protein (6.0-8.3) gm/dl Albumin (3.4-5.0) gm/dl Globulin (2.5-4.0) gm/dl Albumin/Globulin Ratio (0.9-2) CA 125 Antigen 27 (<35) U/mL Hospital Course (1) Colonic mass: (2) Crohn's disease: Plan 22-year-old female with history of Crohn's disease on infliximab and Remicade found to have colonic mass with mets to liver. Colonic mass with mets to liver -CEA 0.4, LDH elevated, CA 125 WNL -Per oncology, although imaging suggestive of adenocarcinoma, clinical symptoms and labs suggest possible lymphoproliferative process; await core biopsy from 04/25 colonoscopy -Colonoscopy found "An infiltrative partially obstructing large mass was found in the proximal transverse colon. The mass was partially circumferential (involving two-thirds of the lumen circumference). The mass measured seven cm in length" -Patient tolerating regular food without pain after colonoscopy on day of discharge -CT chest w/o thoracic disease -Pending flow cytometry -Patient to have oncology appointment set up within 1 week in [facility]. Nurse Navigator assisting in this process. -Anticipate biopsy results within the next week, patient provided with printed copies of documents from admission and has portal access to view biopsy results when available. Crohn's disease -Continue azathioprine 50mg PO daily. Outpatient q6w infliximab. Recurrent fevers, leukocytosis -Most likely in setting of colonic mass, lower suspicion for sepsis -Afebrile on day of discharge -Blood cultures with no growth to date -Procal and lactate negative -- abx deferred -Peripheral smear negative Total Time Total Time Spent Total Time Spent (In Minutes): .>30 Discharge Plan Discharge Items Patient Disposition: Home - Self-Care Reason For Visit: COLON MASS, ABDOMINAL PAIN Discharge Diagnosis: Colon Mass Activity: Per Instructions section Non-emergency contact: Primary Care Provider and Oncologist Call non-emergency contact if: you have any medication questions and your symptoms worsen Follow-up/Referrals: Andrew Sandy MD [Other] - 04/28/23 12:30 pm (PCP appointment) Regan Gongora [Other] (GI- awaiting call back for appointment) [facility] [Other] (Referral sent-- Office stated they will review clinical and reach out to you to schedule. ) [facility] [Primary Care Provider] - Diet: Regular Addtl Attending Provider Instructions: You were admitted to the hospital for abdominal pain. You had CT imaging and a colonoscopy with biopsy, which identified a malignant mass in the transverse colon. As we discussed, we cannot determine whether this could be a lymphoma vs. colon cancer until the biopsy is resulted. This information will be viewable on your portal (likely late this week or early next week). You will be set up with an oncologist in [facility] (via our nurse navigator), you should also follow up with your grease renderer. Follow-up appointments: Make a follow-up appointment with your PCP (and/or your grease renderer) devi wall the next week. It is very important that you follow up with them shortly after discharge from the hospital. Carlie, our nurse navigator, will be contacting you to schedule your appointments with oncology in [facility] Medications: We have not made any changes to your medications during this admission. CALL 911 OR GO TO THE EMERGENCY DEPARTMENT if you experience any of the follow ing: Sudden, severe abdominal pain or nausea/vomiting Severe chest pain, or chest pain that radiates (moves) to your jaw or arm Sudden, severe shortness of breath or difficulty breathing Thank you for allowing us to participate in your care. If you have questions or concerns related to setting up your care in [facility], please call [phone] and ask to speak with Dr. Eamon Nash. Pending Studies at Discharge: Yes Stand-Alone Forms: My [facility] [employer], Smoking Cessation Medications and DC Order Prescriptions: Continued azathioprine 50 mg tablet 50 mg PO DAILY infliximab [Remicade] 100 mg Recon Soln 0 mg IV .EVERY 6 WEEKS Rx Instructions: pt doesnt know dose Discharge Orders: Discharge Order (Routine); Ordered 04/25/23 Ordered By: Shikha Vincent Admission Data Admit Date/Time: 04/22/23 17:44 Attending Provider: Eamon Nash Admit Provider: Chester Mcdonald Primary Care Provider: [facility] Other Providers: Dwaine Noyola ; Alysia Liu ; Chester Mcdonald Other Interventions: Discharge Summary Assessment (RN) Last Done: 04/25/23 15:49 Supervising Physician Co-Signing Physician Notes I personally examined the patient and verified all thomas points of history and exam, discussed case, and agree with decision making with Dr Vincent feeling ok and would like to go home. discussed with pt, family - answered all questions to the best of my ability. d/w GI and oncology - input appreciated. Also discussed extensively with nurse navigator who took ownership of the situation to ensure patient does not get lost to follow-up. Vitals noted, in general she is awake and alert pleasant appropriately anxious for the situation but otherwise no distress. HEENT normocephalic atraumatic mucous membranes moist. Breathing unlabored no accessory muscle use good eff ort. Skin shows no rashes no pallor or icterus. Neuro without focal deficits. Colonoscopy report noted, CBC, complete metabolic panel noted. Colon mass with liver metastasesbiopsy pending. Tolerating diet. Safe/stable for home. Nurse navigator facilitating follow-up with PCP, GI, oncology. Biopsy still pendingdiscussed with patient and family how to obtain results, nurse navigator will also be watching for the results to ensure patient is aware. Additionally nurse navigator discussed with oncology locally who will also be watching for results to ensure patient is aware. Patient given our contact information so that if anything is slipping through the cracks with coordination between here and home ([place]) she can call and have problems remedied as quickly as we feasibly can. Discussed anticipated next stepsbut with the limitation of being very clear multiple times that the pathology on the biopsy will really dictate the next steps. They expressed understanding of that, asked good questions. Leukocytosisno signs or symptoms of infection, probably steroid effect. Outpatient follow-up. Safe/stable for home, close outpatient follow-up being facilitated by nurse temi bell.
--- NOTE | 2023-04-25 18:50 | Billing Data ---
Date of Service April 25, 2023 Coding Level of Care Code 33727 INP/OBS DISCH >30 MIN
--- NOTE | 2023-04-27 09:10 | Coding Query ---
PATHOLOGY To promote full compliance with coding requirements relating to patient care, physician participation is requested in all cases of studio producer uncertainty. Please assist us with the question(s) below: Please review the Pathology report and please document any relevant diagnosis(es) below: Diagnosis(es): due to cellular necrosis, pathology report was nondiagnostic - so no new definitive diagnosis yet, patient will have repeat biopsy arranged Thank you Lexus ALMAZAN
== END 2023-04-25 17:05 | disposition home or self-care (01) | DRG 394 ==
LOC: ED 12:35 → SUATTDRO 17:44 → 2W 17:44